=== PATIENT | male | born 1960 | race Caucasian/White ===

== ENCOUNTER 2018-03-06 18:51 | Emergency (ER) | payer OTHER ==
[2018-03-06 19:08] VITALS: BP 125/87
[2018-03-06] MEDS ORDERED: CYCLOBENZAPRINE 10 MG TAB PO ONE (19:34)
[2018-03-06] MEDS ORDERED: CYCLOBENZAPRINE 10MG PREPACK#3 BTL TAKEHOME ONE (19:34)
--- NOTE | 2018-03-06 19:38 | EDPHY ---
H & P Time Seen by Provider: 03/06/18 19:02 HPI/ROS: CHIEF COMPLAINT: Back pain History by patient HISTORY OF PRESENT ILLNESS: 57-year-old man with no significant past medical history presents complaining of bilateral but right greater than left low back pain which he describes as deep and achy with intermittent severe sharp spasms which occur particularly with movement. Pain began about a week ago and has gradually worsened and has been steady and a higher level for the past 3 days. Patient has been taking ibuprofen with some intermittent relief. Pain radiates across the sides of his back but not down into his legs. It is worse when he tries to change position or twist. It awakes him when he rolls over at night. He denies any numbness or tingling in his legs or difficulty controlling his bowel or bladder. He denies any fevers. 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 REVIEW OF SYSTEMS: As in HPI, and all other systems reviewed and are negative Smoking Status: Never smoked Physical Exam: General Appearance: Alert, well-appearing. Head: Normocephalic, atraumatic Eyes: Pupils equal and round, no pallor or injection. ENT, Mouth: Mucous membranes moist. Neck: No bony tenderness, full range of motion Gastrointestinal: Abdomen is soft and nontender, no masses, bowel sounds normal. Neurological: Awake, alert and oriented x 3, no pronator drift, normal gait, no pronator drift, DTRs 2+ and equal bilaterally in knees and ankles, motor is 5 /5 and equal bilaterally in the lower extremities, distal sensation is intact Back: No bony tenderness, no CVA tenderness, no lesions, right greater than left pain in low back with straight leg raise with right leg but not left leg Skin: Warm and dry, no rashes. Musculoskeletal: Neck is supple, FROM, nontender. Extremities: symmetrical, full range of motion. Psychiatric: Patient has normal affect, there is no agitation. Constitutional: Initial Vital Signs Temperature (C) 36.8 C 03/06/18 19:03 Heart Rate 83 03/06/18 19:03 Respiratory Rate 18 03/06/18 19:03 Blood Pressure 125/87 H 03/06/18 19:03 O2 Sat (%) 93 03/06/18 19:03 O2 Delivery Mode Room Air Allergies/Adverse Reactions: No Known Allergies Allergy (Unverified 03/06/18 19:06) Home Medications: Medication Instructions Recorded Cyclobenzaprine [Flexeril 10 MG 10 mg PO TID #10 tab 03/06/18 (*)] Meloxicam 7.5 mg PO DAILY #10 tablet 03/06/18 MDM/Departure - [facility] ED Course/Re-evaluation: 57-year-old man presents with low back pain. His neurologic exam is normal and there are no red flag symptoms to suggest serious emergency cause at this time that would require further testing or imaging. I suspect musculoskeletal back pain. I am recommending a trial of NSAIDs, cyclobenzaprine as needed for spasms , no lifting and follow up with primary care physician if the symptoms persist for more than a week or 10 days. I discussed this plan with the patient's understand and are agreeable to this plan. - Depart Disposition: Home, Routine, Self-Care Clinical Impression: Low back pain Qualifiers: Chronicity: acute Back pain laterality: bilateral Sciatica presence: without sciatica Qualified Code(s): M54.5 - Low back pain Condition: Good Instructions: Cyclobenzaprine (By mouth), Acute Low Back Pain (ED) Additional Instructions: You were seen by Dr. Theresa Duenas today. Take meloxicam once daily for pain and inflammation. You may also take acetaminophen 1000 mg every 4 hr in combination with the meloxicam. Do not take ibuprofen with meloxicam. Take cyclobenzaprine (Flexeril) up to 3 times daily as needed for back spasms. Continue light activity such as walking, but do not lift more than 5-8 lb. Follow up with her primary care physician at [place] if her symptoms persist for more than a week or worsen. Return for any worsening or new concerns. Prescriptions: Cyclobenzaprine [Flexeril 10 MG (*)] 10 mg PO TID #10 tab Meloxicam 7.5 mg PO DAILY #10 tablet Referrals: ADOLFO GARCIA [Primary Care Provider] - As per Instructions
== END 2018-03-06 19:49 | disposition home or self-care (01) ==
LOC: CED 18:51
DX: S39.92XA Unspecified injury of lower back, initial encounter (principal); X50.0XXA Overexertion from strenuous movement or load, initial encounter; Y92.410 Unspecified street and highway as the place of occurrence of the external cause; Y99.0 Civilian activity done for income or pay; Y93.89 Activity, other specified